=== PATIENT | male | born 1990 | race Asian ===

== ENCOUNTER 2020-05-01 13:36 | Emergency (ER) | payer OTHER ==
[~2020-05-01] VITALS: Ht 167.6 cm; Wt 59.0 kg
[2020-05-01 13:39] VITALS: BP 133/89; Ht 167.6 cm; Wt 59.0 kg
== END 2020-05-01 14:02 | disposition other institution (70) ==
LOC: ED 13:36
DX: Z02.89 Encounter for other administrative examinations (principal)